=== PATIENT | female | born 1965 | race Caucasian/White ===

== ENCOUNTER 2020-10-30 01:28 | Emergency (ER) | payer OTHER ==
[2020-10-30 04:03] LABS: RED BLOOD COUNT 5.01 M/UL (4.00-5.10); WHITE BLOOD COUNT 8.4 K/UL (4.5-11.0)
[2020-10-30] MEDS ORDERED: PHENERGAN 25 MG25 M1 PO (06:39)
[2020-10-30] MEDS ORDERED: ZOFRAN ODT 4 MG4 MG PO (06:39)
== END 2020-10-30 07:27 | disposition home or self-care (01) ==
LOC: ER1 01:28
PROVIDERS: Family Medicine
DX: U07.1 COVID-19 (principal); E87.6 Hypokalemia; I10 Essential (primary) hypertension; E78.5 Hyperlipidemia, unspecified; E07.9 Disorder of thyroid, unspecified; Z79.899 Other long term (current) drug therapy
CPT/HCPCS: 80053; 83605; 83690; 85025; 96374; 99284; J2405

== ENCOUNTER 2021-10-08 14:53 | Inpatient (IN) | payer OTHER ==
[~2021-10-08] VITALS: Ht 172.7 cm; Wt 98.9 kg
[~2021-10-08 14:53] MED LIST: PHENERGAN 25 MG25 M1 PO; ZOFRAN ODT 4 MG4 MG PO
[2021-10-08 15:39] LABS: HEMOGLOBIN 16.8 gm/dl (12.3-15.3); RED BLOOD COUNT 5.49 M/UL (4.00-5.10)
[2021-10-08] MEDS ORDERED: SIMVASTATIN20 MG PO (23:23)
[2021-10-08] MEDS ORDERED: CHLORTHALIDONE25 MG PO (23:24)
[2021-10-08] MEDS ORDERED: LEVOTHYROXINE25 MCG PO (23:25)
[2021-10-08] MEDS ORDERED: EFFEXOR XR 75 M75 MG PO (23:26)
[2021-10-08 23:27] LABS: BUN/CREATININE RATIO 32 (0-10)
[2021-10-09 04:42] LABS: WHITE BLOOD COUNT 13.6 K/UL (4.5-11.0)
[2021-10-09 04:49] LABS: HEMOGLOBIN 14.1 gm/dl (12.3-15.3); RED BLOOD COUNT 4.63 M/UL (4.00-5.10)
[2021-10-09 05:01] LABS: BUN/CREATININE RATIO 30 (0-10)
[2021-10-09 07:05] LABS: BUN/CREATININE RATIO 26 (0-10)
[2021-10-10 04:13] LABS: HEMOGLOBIN 13.9 gm/dl (12.3-15.3); RED BLOOD COUNT 4.44 M/UL (4.00-5.10)
[2021-10-10 04:19] LABS: WHITE BLOOD COUNT 7.7 K/UL (4.5-11.0)
[2021-10-10 04:33] LABS: BUN/CREATININE RATIO 29 (0-10)
[2021-10-10] MEDS ORDERED: MYCOSTATIN100000 UTS PO (10:36)
[2021-10-10] MEDS ORDERED: BASAGLAR K100 UNIT/1 SQ (10:36)
[2021-10-10] MEDS ORDERED: METFORMIN HCL1000 MG PO (10:36)
[2021-10-10] MEDS ORDERED: JARDIANCE10 MG PO (10:36)
== END 2021-10-10 11:36 | disposition home or self-care (01) | DRG 638 ==
LOC: ER1 14:53 → CDU 20:05 → CCU 20:05 → PROG CARE 10-09 19:20
PROVIDERS: Internal Medicine; Physician Assistant; ADMIT Internal Medicine
DX: E11.10 Type 2 diabetes mellitus with ketoacidosis without coma (principal); B37.0 Candidal stomatitis; F41.9 Anxiety disorder, unspecified; E03.9 Hypothyroidism, unspecified; Z20.822 Contact with and (suspected) exposure to COVID-19; I10 Essential (primary) hypertension; Z79.84 Long term (current) use of oral hypoglycemic drugs; Z90.710 Acquired absence of both cervix and uterus; Z88.5 Allergy status to narcotic agent; Z82.49 Family history of ischemic heart disease and other diseases of the circulatory system; Z83.3 Family history of diabetes mellitus; Z79.899 Other long term (current) drug therapy
CPT/HCPCS: 36415; 36600; 80048; 80053; 81001; 82009; 82803; 82947; 82962; 83036; 83690; 83735; 84439; 84443; 85025; 93005; 99285; J1650; J3480; J7030; Q9967; U0002